=== PATIENT | female | born 1965 | race African-American/Black ===

== ENCOUNTER 2016-11-21 19:41 | Emergency (ER) | payer BC ==
[2016-11-21 19:54] VITALS: BP 131/77; PULSE 84; TEMP 97.9; BMI 25.0
[2016-11-21] MEDS ORDERED: DIPHTH,PERTUSS(ACELL),TET 0.5 ML DISP.SYRIN IM ONE (20:54)
--- NOTE | 2016-11-21 21:12 | PDOC ---
History of Present Illness - General Chief Complaint: Laceration Stated Complaint: LACERATION Time Seen by Provider: 11/21/16 20:18 - History of Present Illness Initial Comments: 11/21/16 21:12 CHIEF COMPLAINT: laceration HISTORY OF PRESENT ILLNESS: 51 yo F presents to fast track with laceration to R 3rd finger s/p injury. Patient reports she was trying to break a glass vial of hair color and cut her finger two days ago. Patient denies pain to site of laceration but c/o pain to knuckle. Patient denies any fever, chills, vomiting, diarrhea. She is unsure when her last tetanus shot was. PAST MEDICAL HISTORY: Denies past medical history FAMILY HISTORY: Denies SOCIAL HISTORY:Denies tobacco, alcohol, illicit drug use. SURGICAL HISTORY: Denies ALLERGIES: No known drug allergies REVIEW OF SYSTEMS General/Constitutional: Denies fever or chills. Denies weakness, weight change. HEENT: Denies change in vision. Denies ear pain or discharge. Denies sore throat. Cardiovascular: Denies chest pain or shortness of breath. Respiratory: Denies cough, wheezing, or hemoptysis. Gastrointestinal: Denies nausea, vomiting, diarrhea or constipation. Denies rectal bleeding. Genitourinary: Denies dysuria, frequency, or change in urination. Musculoskeletal: Pain to 3rd knuckle.. Denies neck or back pain. Skin: I cut my finger on glass. PHYSICAL EXAM General Appearance: Well-appearing, appropriately dressed. No apparent distress. HEENT: EOMI, PERRLA. No conjunctival pallor. No photophobia, scleral icterus. Respiratory/Chest: Lungs CTAB. Cardiovascular: RRR. S1, S2. Musculoskeletal/Extremities:Tenderness to dorsal aspect of right 3rd PIP. No swelling, erythema, warmth to joint. Normal inspection. FROM of all extremities , normal capillary refill. Pelvis Stable. No CVA tenderness. No tenderness to extremities, pedal edema, swelling, erythema or deformity. Integumentary: 1 cm healed laceration distal to right 3rd PIP, no bleeding. Appropriate color, dry, warm. No cyanosis, erythema, jaundice or rash Neurologic: follow up manager II-XII intact. Fully oriented, alert. Appropriate mood/affect. Motor strength 5/5. No appreciable EOM palsy, facial droop or sensory deficit. Past History - Past Medical History Allergies/Adverse Reactions: Allergies Allergy/AdvReac Type Severity Reaction Status Date / Time No Known Allergies Allergy Verified 11/21/16 19:51 Home Medications: Ambulatory Orders Adalimumab [Humira] 40 mg SQ ASDIR 11/21/16 GI Disorders: Yes (Crohn's) - Surgical History Cholecystectomy: Yes GI Surgery: Yes (Colenectomy) - Suicide/Smoking/Psychosocial Hx Smoking History: Never smoked Have you smoked in the past 12 months: No Information on smoking cessation initiated: No Hx Alcohol Use: No Drug/Substance Use Hx: No Substance Use Type: None *Physical Exam - Vital Signs Last Vital Signs Temp Pulse Resp BP Pulse Ox 97.9 F 84 18 131/77 99 11/21/16 19:51 11/21/16 19:51 11/21/16 19:51 11/21/16 19:51 11/21/16 19:51 ED Treatment Course - RADIOLOGY Radiology Studies Ordered: Category Date Time Status FINGER(S) RIGHT [RAD] Stat Radiology 11/21/16 20:54 Ordered - Medications Given in the ED: ED Medications Discontinued Medications Generic Name Dose Route Start Last Admin Trade Name Freq PRN Reason Stop Dose Admin Diphtheria/Tetanus/Acell Pertussis 0.5 ml 11/21/16 20:54 11/21/16 20:56 Boostrix - IM 11/21/16 20:55 0.5 ml .ONCE ONE Administration Medical Decision Making - Medical Decision Making 11/21/16 21:21 51 yo F presents to fast track with laceration to R 3rd finger s/p injury -Tdap -x-ray r/o foreign body no foreign bodies noted, no fracture or dislocation. laceration cleansed, xeroform dressing and tube gauze applied Advised patient to monitor joint and of signs and symptoms for return to ER. Advised patien tto f/u with hand specialist if symptoms persist, patient verbalized understanding and agrees to plan *DC/Admit/Observation/Transfer Diagnosis at time of Disposition: Finger injury Qualifiers: Encounter type: initial encounter Laterality: right Qualified Code(s): S69.91XA - Unspecified injury of right wrist, hand and finger(s), initial encounter; S69.91XA - Unspecified injury of right wrist, hand and finger(s), initial encounter - Discharge Dispostion Disposition: HOME Condition at time of disposition: Stable Admit: No - Referrals Referrals: Chino Reece [Primary Care Provider] - Gustavo Llanos MD [Staff Physician] - - Patient Instructions Printed Discharge Instructions: DI for Finger Sprain Additional Instructions: You may take ibuprofen for pain in your finger. As discussed, please monitor your finger for any redness, swelling, warmth, or increased pain. If you develop any of those symptoms, or any fever, chills, vomiting, or diarrhea, please go to the nearest ER. Follow up with a hand specialist if pain persists past 2 days.
== END 2016-11-21 21:16 | disposition home or self-care (01) ==
LOC: JERFT 19:41
PROC: 3E0234Z Introduction of Serum, Toxoid and Vaccine into Muscle, Percutaneous Approach (ICD-10-PCS; principal; 2016-11-21)
DX: S69.91XA Unspecified injury of right wrist, hand and finger(s), initial encounter (principal); W45.8XXA Other foreign body or object entering through skin, initial encounter; Y93.89 Activity, other specified; Y92.9 Unspecified place or not applicable; K50.90 Crohn's disease, unspecified, without complications
CPT/HCPCS: 73140-TC-RT; 90715; 99281-25